=== PATIENT | male | born 1995 | race American Indian/Alaskan Native ===

== ENCOUNTER 2017-02-10 02:25 | Emergency (ER) | payer MEDICAID ==
[2017-02-10 02:33] VITALS: RESP 18
[2017-02-10] MEDS ORDERED: Sodium Chloride 0.9% 1,000 ML IV STA (03:16)
[2017-02-10 04:17] LABS: BASO # 0.1 K/uL (0.0-0.2); BASO % 1.4 % (0.0-2.0); EOS # 0.1 K/uL (0.0-0.7); EOS % 1.9 % (0.0-4.0); HEMATOCRIT 38.8 % (35.0-51.0); LYMPH # 2.7 K/uL (1.0-4.3); LYMPH % 38.2 % (20.0-40.0); MEAN CELL VOLUME 87.8 fl (80.0-94.0); MEAN CORPUSCULAR HGB CONC 34.2 g/dL (33.0-37.0); MONO # 0.5 K/uL (0.0-0.8); MONO % 7.3 % (0.0-10.0); NEUT # 3.7 K/uL (1.8-7.0); NEUT % 51.2 % (50.0-75.0); NRBC % 0.2 % (0.0-0.0); RED CELL DISTRIBUTION WIDTH 14.6 % (11.5-14.5); WHITE BLOOD COUNT 7.1 K/uL (4.8-10.8)
[2017-02-10 04:25] LABS: RBC URINE 1 /hpf (0-3); URINE BILIRUBIN NEGATIVE (NEGATIVE); URINE BLOOD NEGATIVE (NEGATIVE); URINE COLOR YELLOW (YELLOW); URINE GLUCOSE (UA) NEG (Normal); URINE KETONE NEGATIVE (NEGATIVE); URINE LEUKOCYTE ESTERASE NEG Leu/uL (Negative); URINE PROTEIN NEGATIVE (NEGATIVE); WBC URINE < 1 /hpf (0-5)
[2017-02-10 04:35] LABS: ALB/GLOB RATIO 1.3 (1.0-2.1); ALCOHOL SERUM < 10 mg/dl (0-10); ALKALINE PHOSPHATASE 57 U/L (38-126); ALT/SGPT 81 U/L (21-72); AST/SGOT 69 U/L (17-59); BILIRUBIN,TOTAL 0.7 mg/dl (0.2-1.3); BLOOD UREA NITROGEN 12 mg/dl (9-20); CALCIUM 9.4 mg/dL (8.4-10.2); CARBON DIOXIDE 24 mmol/L (22-30); CHLORIDE 107 mmol/L (98-107); GFR AFRICAN-AMERICAN > 60; GLUCOSE,RANDOM 151 mg/dL (75-110); POTASSIUM 4.4 MMOL/L (3.6-5.0); SODIUM 143 mmol/l (132-148); TOTAL PROTEIN 7.5 G/DL (6.3-8.2)
--- NOTE | 2017-02-10 04:51 | ED PDOC ---
HPI: General Adult Time Seen by Provider: 02/10/17 02:48 Chief Complaint (Nursing): Headache Chief Complaint (Provider): weak, stressed History Per: Patient History/Exam Limitations: no limitations Onset/Duration Of Symptoms: Days Current Symptoms Are (Timing): Better Additional History Per: Patient Additional Complaint(s): 22 y/o male brought in by EMS for eval of possible low blood sugar. Patient states he has been stressed lately due to "personal problems" and tonight while walking and talking with his father about these problems he developed a headache , with some shortness of breath, and felt generally weak. Patient states he feels like it was everything "just building up". Patient notes just feeling tired now. Denies suicidal/homicidal ideations, hallucinations, drug/alcohol use, headache, dizziness, extremity numbness/weakness, chest pain, shortness of breath, palpitations, abdominal pain, changes in bowel movements. Patient report being noncompliant with diabetes medications. Past Medical History Reviewed: Historical Data, Nursing Documentation, Vital Signs Vital Signs: Last Vital Signs Temp 98.8 F 02/10/17 02:30 Pulse 97 H 02/10/17 02:30 Resp 18 02/10/17 02:30 BP 141/83 02/10/17 02:30 Pulse Ox 95 02/10/17 05:20 - Medical History PMH: Asthma, Diabetes - Surgical History Surgical History: No Surg Hx - Family History Family History: States: Unknown Family Hx - Allergies Allergies/Adverse Reactions: Allergies Allergy/AdvReac Type Severity Reaction Status Date / Time No Known Allergies Allergy Verified 02/10/17 03:15 Review of Systems ROS Statement: Except As Marked, All Systems Reviewed And Found Negative Constitutional: Positive for: Weakness Physical Exam - Reviewed Nursing Documentation Reviewed: Yes Vital Signs Reviewed: Yes - Physical Exam Appears: Positive for: Well, Non-toxic, No Acute Distress Head Exam: Positive for: ATRAUMATIC, NORMAL INSPECTION, NORMOCEPHALIC Skin: Positive for: Normal Color Eye Exam: Positive for: Normal appearance ENT: Positive for: Normal ENT Inspection Cardiovascular/Chest: Positive for: Regular Rate, Rhythm Respiratory: Positive for: Normal Breath Sounds Gastrointestinal/Abdominal: Positive for: Normal Exam Back: Positive for: Normal Inspection Extremity: Positive for: Normal ROM Neurologic/Psych: Positive for: Alert, Oriented - Laboratory Results Result Diagrams: 02/10/17 04:06 02/10/17 04:06 - ECG ECG: Positive for: Viewed By Me (reviewed by ED attending) ECG Rhythm: Positive for: Sinus Rhythm O2 Sat by Pulse Oximetry: 95 - Progress ED Course And Treament: labs, ekg, IV fluids On re-eval, patient states he is feeling better. Patient educated on findings, discharged with instructions to follow up PMD 2-3 days. Advised fluids, diet, take medications as directed. Return to ED for worsening/concerning symptoms. Disposition - Clinical Impression Clinical Impression: Generalized weakness - Patient ED Disposition Is Patient to be Admitted: No Counseled Patient/Family Regarding: Studies Performed, Diagnosis, Need For Followup - Disposition Disposition: Routine/Home Disposition Time: 05:44 Condition: IMPROVED Additional Instructions: Follow up with primary doctor in 2-3 days. Take medications as directed. Return to ED for worsening/concerning symptoms. Instructions: Weakness (ED)
[2017-02-10 05:45] VITALS: BP 137/68; PULSE 88; TEMP 98.4
[2017-02-10 05:48] VITALS: O2SAT 95
--- NOTE | 2017-02-10 12:25 | CARD ---
APPROVED REPORT EKG Measurement Heart [id number] <Conclusion> Normal sinus rhythm Nonspecific ST abnormality Abnormal ECG
== END 2017-02-10 06:09 | disposition home or self-care (01) ==
LOC: H.ER 02:25
DX: R53.1 Weakness (principal); E11.9 Type 2 diabetes mellitus without complications; J45.909 Unspecified asthma, uncomplicated